=== PATIENT | male | born 1980 | race Asian ===

== ENCOUNTER 2018-07-19 00:51 | Inpatient (IN) | payer OTHER ==
[~2018-07-19] VITALS: Ht 144.8 cm; Wt 64.9 kg
[2018-07-19] MEDS ORDERED: normal saline 1000ML IV soln IVB ONE (01:20)
[2018-07-19 01:33] LABS: BASOPHILS # (AUTO) 0.1 X10'3 (0-0.2); BASOPHILS % (AUTO) 1.3 % (0-1); EOSINOPHILS % (AUTO) 0.2 % (0-6); HEMATOCRIT 44.6 % (42.0-52.0); LYMPHOCYTES # (AUTO) 0.8 X10'3 (1.1-4.8); LYMPHOCYTES % (AUTO) 8.4 % (21-51); MEAN CORPUSCULAR HEMOGLOBIN 22.4 PG (27.0-31.0); MEAN CORPUSCULAR HGB CONC 31.3 % (33.0-36.5); MEAN CORPUSCULAR VOLUME 71.6 FL (78-98); MEAN PLATELET VOLUME 9.2 FL (7.4-10.4); MONOCYTES # (AUTO) 0.5 X10'3 (0-0.9); MONOCYTES % (AUTO) 5.4 % (2-12); NEUTROPHILS % (AUTO) 84.7 % (42-75); PLATELET COUNT 144 X10'3 (140-440); RED BLOOD COUNT 6.23 X10'6 (4.70-6.10); RED CELL DISTRIBUTION WIDTH 14.4 % (11.5-14.5); WHITE BLOOD COUNT 9.4 X10'3 (4.5-11.0)
[2018-07-19 01:43] LABS: ALANINE AMINOTRANSFERASE 45 U/L (12-78); ALBUMIN 3.6 G/DL (3.4-5.0); ALBUMIN/GLOBULIN RATIO 0.8 (1.1-1.5); ALKALINE PHOSPHATASE 78 IU/L (46-116); ANION GAP 12 (8-16); ASPARTATE AMINO TRANSFERASE 26 U/L (10-37); BILIRUBIN,TOTAL 0.4 MG/DL (0.1-1.0); BLOOD UREA NITROGEN 14 MG/DL (7-18); BUN/CREATININE RATIO 11.5 (5.4-32.0); CALCIUM 8.6 MG/DL (8.5-10.1); CHLORIDE 102 MMOL/L (99-107); CREATININE 1.22 MG/DL (0.60-1.10); GLUCOSE 142 MG/DL (70-104); POTASSIUM 4.1 MMOL/L (3.5-5.1); SODIUM 139 MMOL/L (135-145); TOTAL CARBON DIOXIDE 25.5 MMOL/L (24-32); TOTAL PROTEIN 7.9 G/DL (6.4-8.2); eGFR 67 ML/MIN
[2018-07-19] MEDS ORDERED: aspirin 325mg tablet PO ONE (01:55)
[2018-07-19] MEDS ORDERED: enoxaparin 100mg/ml syringe SUBCUT ONE (02:00)
[2018-07-19 02:08] LABS: D-DIMER 8.42 MG/L FEU (0-0.50)
[2018-07-19] MEDS ORDERED: enoxaparin 60mg/0.6ml syringe SUBCUT ONE (02:15)
[2018-07-19] MEDS ORDERED: iohexol 350MG/ML 100ml bottle IV ONE (02:23)
[2018-07-19] MEDS ORDERED: NO HOME MEDS (02:29)
[2018-07-19] MEDS ORDERED: ondansetron/PF 4mg/2ml inj IV PRN (10:50)
[2018-07-19] MEDS ORDERED: potassium Cl 40MEQ/NS 500ml 500 ML IV PRN ×2 (10:50)
[2018-07-19] MEDS ORDERED: potassium Cl 20 mEq SR tablet PO PRN ×2 (10:50)
[2018-07-19] MEDS ORDERED: heparin 10,000 units/1 ML INJ IV ONE (10:50)
[2018-07-19] MEDS ORDERED: magnesium Cl slow-release 64mg tablet PO PRN (10:50)
[2018-07-19] MEDS ORDERED: magnesium 1gm/100ml D5W IVPB 100 ML IV PRN (10:50)
[2018-07-19] MEDS ORDERED: docusate sod 100mg capsule PO PRN (10:50)
[2018-07-19] MEDS ORDERED: acetaminophen 325mg tablet PO PRN (10:50)
[2018-07-19] MEDS ORDERED: heparin 10,000 units/1 ML INJ IV PRN (10:50)
[2018-07-19] MEDS ORDERED: magnesium 4gm in 100ml NS 100 ML IV PRN (10:50)
[2018-07-19] MEDS: normal saline 1000ml 1,000 ML IV SCH (11:09)
[2018-07-19] MEDS: heparin 25,000 UNIT/250ml bag 250 ML IV SCH ×2 (11:19→18:35)
[2018-07-19 12:55] VITALS: BP 131/86
[2018-07-19 15:00] VITALS: BP 110/77
[2018-07-19 19:00] VITALS: BP 115/83
[2018-07-19] MEDS ORDERED: temazepam 15mg capsule PO PRN (21:00)
[2018-07-19 23:00] VITALS: BP 120/85
[2018-07-20 06:00] VITALS: BP 105/74
[2018-07-20 07:31] LABS: BASOPHILS % (AUTO) 0.5 % (0-1); EOSINOPHILS # (AUTO) 0.1 X10'3 (0-0.9); EOSINOPHILS % (AUTO) 1.7 % (0-6); HEMATOCRIT 40.6 % (42.0-52.0); LYMPHOCYTES # (AUTO) 1.5 X10'3 (1.1-4.8); LYMPHOCYTES % (AUTO) 21.5 % (21-51); MEAN CORPUSCULAR HEMOGLOBIN 22.9 PG (27.0-31.0); MEAN CORPUSCULAR HGB CONC 32.1 % (33.0-36.5); MEAN CORPUSCULAR VOLUME 71.4 FL (78-98); MEAN PLATELET VOLUME 9.1 FL (7.4-10.4); MONOCYTES # (AUTO) 0.5 X10'3 (0-0.9); MONOCYTES % (AUTO) 7.4 % (2-12); NEUTROPHILS # (AUTO) 4.8 X10'3 (1.8-7.7); NEUTROPHILS % (AUTO) 68.9 % (42-75); PLATELET COUNT 159 X10'3 (140-440); RED BLOOD COUNT 5.68 X10'6 (4.70-6.10); RED CELL DISTRIBUTION WIDTH 15.3 % (11.5-14.5)
[2018-07-20 07:46] LABS: ANION GAP 11 (8-16); BLOOD UREA NITROGEN 12 MG/DL (7-18); BUN/CREATININE RATIO 10.6 (5.4-32.0); CALCIUM 8.4 MG/DL (8.5-10.1); CHLORIDE 106 MMOL/L (99-107); CREATININE 1.13 MG/DL (0.60-1.10); GLUCOSE 96 MG/DL (70-104); MAGNESIUM 2.1 MG/DL (1.5-2.4); POTASSIUM 3.8 MMOL/L (3.5-5.1); SODIUM 142 MMOL/L (135-145); TOTAL CARBON DIOXIDE 25.3 MMOL/L (24-32); eGFR 73 ML/MIN
[2018-07-20 07:57] LABS: PROTHROMBIN TIME 10.5 SECONDS (9.0-12.0)
[2018-07-20] MEDS: K and/or MAG REPLACEMENT MC SCH (08:00)
[2018-07-20] MEDS: normal saline 1000ml 1,000 ML IV SCH (09:53)
[2018-07-20] MEDS: heparin 25,000 UNIT/250ml bag 250 ML IV SCH (10:26)
[2018-07-20 11:00] VITALS: BP 117/79
[2018-07-20 15:00] VITALS: BP 102/71
[2018-07-20 18:00] VITALS: BP 131/87
[2018-07-20 22:00] VITALS: BP 116/81
[2018-07-21 02:00] VITALS: BP 112/73
[2018-07-21] MEDS: normal saline 1000ml 1,000 ML IV SCH ×2 (02:11→20:22)
[2018-07-21 02:18] LABS: BASOPHILS % (AUTO) 0.6 % (0-1); EOSINOPHILS # (AUTO) 0.1 X10'3 (0-0.9); HEMATOCRIT 41.4 % (42.0-52.0); HEMOGLOBIN 13.5 g/dl (14.0-17.9); LYMPHOCYTES % (AUTO) 30.6 % (21-51); MEAN CORPUSCULAR HEMOGLOBIN 23.2 PG (27.0-31.0); MEAN CORPUSCULAR HGB CONC 32.5 % (33.0-36.5); MEAN CORPUSCULAR VOLUME 71.4 FL (78-98); MONOCYTES # (AUTO) 0.6 X10'3 (0-0.9); NEUTROPHILS # (AUTO) 3.7 X10'3 (1.8-7.7); NEUTROPHILS % (AUTO) 57.8 % (42-75); PLATELET COUNT 180 X10'3 (140-440); RED CELL DISTRIBUTION WIDTH 15.2 % (11.5-14.5); WHITE BLOOD COUNT 6.4 X10'3 (4.5-11.0)
[2018-07-21 02:21] LABS: ALBUMIN 3.2 G/DL (3.4-5.0); ANION GAP 11 (8-16); BLOOD UREA NITROGEN 17 MG/DL (7-18); BUN/CREATININE RATIO 16.3 (5.4-32.0); CHLORIDE 105 MMOL/L (99-107); CREATININE 1.04 MG/DL (0.60-1.10); GLUCOSE 106 MG/DL (70-104); MAGNESIUM 2.3 MG/DL (1.5-2.4); POTASSIUM 3.7 MMOL/L (3.5-5.1); SODIUM 141 MMOL/L (135-145); TOTAL CARBON DIOXIDE 25.4 MMOL/L (24-32); eGFR 80 ML/MIN
[2018-07-21 06:00] VITALS: BP 108/75
[2018-07-21] MEDS: K and/or MAG REPLACEMENT MC SCH (08:00)
[2018-07-21] MEDS: heparin 25,000 UNIT/250ml bag 250 ML IV SCH (09:15)
[2018-07-21 11:00] VITALS: BP 124/92
[2018-07-21 15:00] VITALS: BP 106/71
[2018-07-21 19:00] VITALS: BP 124/86
[2018-07-21] MEDS ORDERED: warfarin 5mg tablet PO ONE (21:00)
[2018-07-21 23:00] VITALS: BP 122/84
[2018-07-22 03:00] VITALS: BP 103/68
[2018-07-22 04:35] LABS: BASOPHILS % (AUTO) 0.5 % (0-1); EOSINOPHILS # (AUTO) 0.2 X10'3 (0-0.9); EOSINOPHILS % (AUTO) 3.4 % (0-6); HEMATOCRIT 42.2 % (42.0-52.0); HEMOGLOBIN 13.3 g/dl (14.0-17.9); LYMPHOCYTES # (AUTO) 1.8 X10'3 (1.1-4.8); LYMPHOCYTES % (AUTO) 30.4 % (21-51); MEAN CORPUSCULAR HEMOGLOBIN 22.7 PG (27.0-31.0); MEAN CORPUSCULAR HGB CONC 31.6 % (33.0-36.5); MEAN CORPUSCULAR VOLUME 71.9 FL (78-98); MEAN PLATELET VOLUME 8.7 FL (7.4-10.4); MONOCYTES # (AUTO) 0.4 X10'3 (0-0.9); MONOCYTES % (AUTO) 7.2 % (2-12); NEUTROPHILS # (AUTO) 3.4 X10'3 (1.8-7.7); NEUTROPHILS % (AUTO) 58.5 % (42-75); PLATELET COUNT 190 X10'3 (140-440); RED BLOOD COUNT 5.86 X10'6 (4.70-6.10); RED CELL DISTRIBUTION WIDTH 15.3 % (11.5-14.5); WHITE BLOOD COUNT 5.8 X10'3 (4.5-11.0)
[2018-07-22 04:48] LABS: ALBUMIN 3.1 G/DL (3.4-5.0); ANION GAP 10 (8-16); BLOOD UREA NITROGEN 20 MG/DL (7-18); BUN/CREATININE RATIO 18.2 (5.4-32.0); CALCIUM 9.1 MG/DL (8.5-10.1); CHLORIDE 105 MMOL/L (99-107); GLUCOSE 102 MG/DL (70-104); MAGNESIUM 2.2 MG/DL (1.5-2.4); POTASSIUM 3.8 MMOL/L (3.5-5.1); SODIUM 141 MMOL/L (135-145); TOTAL CARBON DIOXIDE 25.9 MMOL/L (24-32); eGFR 75 ML/MIN
[2018-07-22 05:12] LABS: PROTHROMBIN TIME 10.2 SECONDS (9.0-12.0)
[2018-07-22 06:49] VITALS: BP 105/71
[2018-07-22] MEDS: K and/or MAG REPLACEMENT MC SCH (07:10)
[2018-07-22] MEDS: heparin 25,000 UNIT/250ml bag 250 ML IV SCH ×3 (11:13→17:35)
[2018-07-22 12:04] VITALS: BP 117/77
[2018-07-22] MEDS: normal saline 1000ml 1,000 ML IV SCH (15:14)
[2018-07-22 17:11] VITALS: BP 125/90
[2018-07-22 19:00] VITALS: BP 116/82
[2018-07-22] MEDS ORDERED: warfarin 5mg tablet PO ONE (21:00)
[2018-07-22 23:00] VITALS: BP 107/70
[2018-07-22 23:25] LABS: PARTIAL THROMBOPLASTIN TIME 64 SECONDS (22-32)
[2018-07-23 03:00] VITALS: BP 99/65
[2018-07-23 05:35] LABS: BASOPHILS % (AUTO) 0.5 % (0-1); EOSINOPHILS # (AUTO) 0.2 X10'3 (0-0.9); EOSINOPHILS % (AUTO) 3.9 % (0-6); HEMATOCRIT 42.7 % (42.0-52.0); HEMOGLOBIN 13.7 g/dl (14.0-17.9); LYMPHOCYTES # (AUTO) 1.5 X10'3 (1.1-4.8); LYMPHOCYTES % (AUTO) 27.5 % (21-51); MEAN CORPUSCULAR HGB CONC 32.1 % (33.0-36.5); MEAN CORPUSCULAR VOLUME 71.9 FL (78-98); MEAN PLATELET VOLUME 8.4 FL (7.4-10.4); MONOCYTES # (AUTO) 0.4 X10'3 (0-0.9); MONOCYTES % (AUTO) 7.9 % (2-12); NEUTROPHILS # (AUTO) 3.3 X10'3 (1.8-7.7); NEUTROPHILS % (AUTO) 60.2 % (42-75); PLATELET COUNT 211 X10'3 (140-440); RED BLOOD COUNT 5.94 X10'6 (4.70-6.10); RED CELL DISTRIBUTION WIDTH 15.1 % (11.5-14.5); WHITE BLOOD COUNT 5.4 X10'3 (4.5-11.0)
[2018-07-23 05:46] LABS: ALBUMIN 3.2 G/DL (3.4-5.0); ANION GAP 9 (8-16); BLOOD UREA NITROGEN 20 MG/DL (7-18); BUN/CREATININE RATIO 18.2 (5.4-32.0); CALCIUM 8.9 MG/DL (8.5-10.1); CHLORIDE 105 MMOL/L (99-107); GLUCOSE 98 MG/DL (70-104); MAGNESIUM 2.2 MG/DL (1.5-2.4); POTASSIUM 4.3 MMOL/L (3.5-5.1); SODIUM 139 MMOL/L (135-145); TOTAL CARBON DIOXIDE 25.3 MMOL/L (24-32); eGFR 75 ML/MIN
[2018-07-23 06:20] LABS: INR 1.3 INR
[2018-07-23 06:30] VITALS: BP 113/88
[2018-07-23] MEDS: K and/or MAG REPLACEMENT MC SCH (06:49)
[2018-07-23] MEDS: normal saline 1000ml 1,000 ML IV SCH (09:51)
[2018-07-23] MEDS: heparin 25,000 UNIT/250ml bag 250 ML IV SCH (10:49)
[2018-07-23 11:46] VITALS: BP 97/66
[2018-07-23] MEDS ORDERED: RIVA20TA PO (11:52)
[2018-07-23] MEDS ORDERED: RIVA15TA PO (11:52)
== END 2018-07-23 13:15 | disposition home or self-care (01) | DRG 299 ==
LOC: ER 00:53 → ED HOLD 10:49 → PCU 3S 12:35
PROVIDERS: ADMIT Internal Medicine; ATTEND Internal Medicine
PROC: B32T1ZZ Computerized Tomography (CT Scan) of Left Pulmonary Artery using Low Osmolar Contrast (ICD-10-PCS; principal; 2018-07-19)
PROC: B3201ZZ Computerized Tomography (CT Scan) of Thoracic Aorta using Low Osmolar Contrast (ICD-10-PCS; 2018-07-19)
PROC: B32S1ZZ Computerized Tomography (CT Scan) of Right Pulmonary Artery using Low Osmolar Contrast (ICD-10-PCS; 2018-07-19)
DX: I82.4Z2 Acute embolism and thrombosis of unspecified deep veins of left distal lower extremity (principal); I26.02 Saddle embolus of pulmonary artery with acute cor pulmonale; I50.30 Unspecified diastolic (congestive) heart failure; D68.59 Other primary thrombophilia; I82.5Z2 Chronic embolism and thrombosis of unspecified deep veins of left distal lower extremity; I08.0 Rheumatic disorders of both mitral and aortic valves
CPT/HCPCS: 36415; 71045; 71275; 80048; 80053; 83735; 83880; 84484; 85025; 85379; 85610; 85730; 87070; 93005; 93306; 93970; 99285; G0378; J1644; J1650; J7030; Q9967